=== PATIENT | male | born 1960 | race Caucasian/White ===

== ENCOUNTER 2023-09-22 08:44 | Outpatient (REF) | payer OTHER, SELFPAY ==
--- NOTE | ~2023-09-22 | CT_ITS ---
CT HEAD WITHOUT IV CONTRAST INDICATION: Memory Loss. COMPARISON: None available. TECHNIQUE: Multidetector CT acquisitions of the head was obtained without IV contrast. This CT examination was performed using dose optimization techniques as appropriate, variously including the following: *Automated exposure control *Adjustment of mA and/or kV according to patient size (this includes techniques or standardized protocols for targeted exams where dose is matched to indication/reason for exam; i.e. extremities or head) *Use of iterative reconstruction technique FINDINGS: There is no intracranial hemorrhage, hydrocephalus, extra-axial surface collection, midline shift, or other herniation pattern. Maciel to white matter differentiation is diffusely maintained without evidence of an evolved acute territorial infarct. The basilar cisterns are preserved. No significant soft tissue abnormality. No acute osseous abnormality. A few posterior left ethmoid air cells are opacified and the left sphenoid sinus has a moderate fluid level. Small fluid level right maxillary sinus CT/CT head/brain wo IV con IMPRESSION: - No acute intracranial abnormality. - A few posterior left ethmoid air cells are opacified and the left sphenoid sinus has a moderate fluid level. Small fluid level right maxillary sinus
== END 2023-09-22 08:45 | disposition home or self-care (01) ==
LOC: HO.CT 08:44
PROVIDERS: PCP Internal Medicine; Visit Provider Psychiatry & Neurology Neurology
DX: R41.3 Other amnesia (principal)
CPT/HCPCS: 70450

== ENCOUNTER 2023-09-22 09:56 | Emergency (ER) | payer OTHER, SELFPAY ==
--- NOTE | 2023-09-22 10:00 | ECG_ITS ---
Test Reason : palpitations Blood Pressure : / mmHG Vent. Rate : 083 BPM Atrial Rate : 083 BPM P-R Int : 166 ms QRS Dur : 100 ms QT Int : 348 ms P-R-T Axes : 020 -08 039 degrees QTc Int : 408 ms Sinus rhythm with occasional Premature ventricular complexes Incomplete right bundle branch block Borderline ECG No previous ECGs available Referred By: Generic ED Physician Electronically Signed By:Adair Castillo
[2023-09-22 10:07] VITALS: BP 143/90; PULSE 90; RESP 20; TEMP 36.2; O2SAT 96; BMI 40.6
[2023-09-22 10:34] LABS: Glucose, Whole Blood 206 mg/dL (60-115)
[2023-09-22 10:38] LABS: MANUAL DIFF FLAG NO
[2023-09-22 10:40] LABS: Basophils Absolute Auto 0.1 X10*3/uL (0.0-0.2); Basophils Percent Auto 0.9 % (0-2); Eosinophils Absolute Auto 0.3 X10*3/uL (0.0-0.4); Eosinophils Percent Auto 3.6 % (0-4); Hematocrit 42.6 % (42.0-52.0); Hemoglobin 15.3 g/dl (14.0-18.0); Imm Gran Abs Auto 0.02 X10*3/uL (0.00-0.03); Imm Gran Pct Auto 0.2 % (0.0-0.4); Lymphocytes Absolute Auto 2.5 X10*3/uL (1.2-4.9); Lymphocytes Percent Auto 30.5 % (20-40); Mean Corpuscular HGB Conc 35.9 g/dl (31.0-36.0); Mean Corpuscular Hemoglobin 31.6 pg (27.0-33.0); Mean Platelet Volume 10.2 fL (9.4-12.4); Monocytes Absolute Auto 0.6 X10*3/uL (0.1-1.2); Monocytes Percent Auto 7.2 % (2-11); Neutrophils Absolute Auto 4.6 x10*3/uL (2.0-8.3); Neutrophils Percent Auto 57.6 % (45-73); Platelet Count 306 X10*3/uL (160-400); Red Blood Count 4.84 X10*6/uL (4.60-5.80); Red Cell Distribution Width 11.7 % (11.0-16.0)
[2023-09-22 10:54] LABS: Alanine Aminotransferase 25 U/L (0-40); Albumin Level 4.3 g/dL (3.5-5.0); Alkaline Phosphatase 114 U/L (39-117); Anion Gap 14 (12-20); Aspartate Amino Transferase 21 U/L (5-37); Bilirubin Direct 0.2 mg/dL (0.0-0.5); Bilirubin Total 0.4 mg/dL (0.0-1.0); Blood Urea Nitrogen 12 mg/dL (9-16); Calcium 9.4 mg/dL (8.4-10.2); Carbon Dioxide 27 mmol/L (22-29); Chloride 102 mmol/L (96-108); Creatinine Clr Calc Pharmacy 65.6; Estimated Glomerular Filt Rate 56; Glucose Random 194 mg/dL (60-115); Lipase 26 U/L (8-78); Potassium 4.7 mmol/L (3.3-5.1); Sodium 138 mmol/L (135-145); Total Protein 7.1 g/dL (6.5-8.0)
--- NOTE | 2023-09-22 17:16 | ED_ITS ---
HPI - General Adult General Chief complaint: General Medical Stated complaint: Vertigo/Palpitations? Time Seen by Provider: 09/22/23 16:57 Source: patient Mode of arrival: ambulatory Limitations: no limitations History of Present Illness HPI narrative: 62-year-old male who presents emergency department for evaluation of head pressure, dizziness and palpitations. Patient states that approximately 2 weeks ago he had a head cold and since that time he has not feeling well. He also states he has been under stress secondary to his 's illness. The patient did see his neurologist and had a CT scan of the brain today, after getting the scan he went to see the neurologist and told that the CT scan was normal. Patient told me that he complained of a fluttering sensation in his chest and he is referred to the emergency department for evaluation. The patient states that he does have a history of atrial fibrillation in the past but had a cardiac workup several years ago which was unremarkable. He states that he has intermittent fluttering sensations in his chest and he describes the sensation as a heart pounding sensation. He does not perceive any skipped beats. He states that when he gets the sensation he does feel dizzy. He denied any chest pressure heaviness or any chest pain associated with exertion. He states that he has been under stress and did have several panic attacks last week. Related Data Previous Rx's Medication Instructions Recorded propranolol 20 mg tablet 20 mg PO DAILY #30 tabs 09/22/23 Allergies Allergy/AdvReac Type Severity Reaction Status Date / Time celecoxib [From Celebrex] Allergy Unknown Verified 09/22/23 10:13 hydromorphone [From Dilaudid] Allergy Dizziness Verified 09/22/23 10:13 Review of Systems 2 Review of Systems: Yes all other systems are reviewed and are negative [facility] Past Medical History [facility] Narrative: Past medical history: Diabetes mellitus, hypertension, hyperlipidemia, atrial fibrillation, diabetic neuropathy, anxiety, depression. Social history: He is . He denies tobacco, alcohol and drug use Physical Exam ED Vital Signs: Vital Signs - 24 hr 09/22/23 10:07 Temperature 97.2 F Pulse Rate 90 Respiratory Rate 20 Blood Pressure 143/90 H Pulse Oximetry 96 Oxygen Delivery Method Room Air BMI result Body Mass Index 40.6 Vital signs revealed an elevated blood pressure of 143/90 otherwise unremarkable Exam General: Awake, alert in no distress Head: Normocephalic, atraumatic EENT: PERRL, Lids normal, sclera normal, conjunctiva normal, nose normal , ears normal, throat without erythema or exudates Neck: Supple, no adenopathy Lung: breath sounds symmetric, no wheezing, rales or rhonchi Chest: symmetric movement, nontender Heart: regular rate and rhythm, normal S1, S2 no murmurs or rubs Abdomen: soft, non-tender, nondistended, normal bowel sounds Back: no vertebral tenderness, no CVAT Extremities: no deformities, moves all extremities symmetrically Skin: no rashes, no lesion, normal color and warmth Neuro: Awake, alert, oriented, normal speech, cranial nerves intact, moves all extremities symmetrically Psych: Pleasant, cooperative Medical Decision Making Medical Decision Making MDM Narrative: 62-year-old male who presents emergency department for evaluation of head pressure, dizziness and palpitations. Patient has not been feeling well for 2 weeks and is under increased stress secondary to his 's illness. Patient did see his neurologist and had a negative CT scan today (as interpreted by his neurologist). Patient's physical examination was unremarkable. Differential diagnosis: Includes was not limited to myocardial infarction, myocardial ischemia, palpitations, atrial fibrillation, arrhythmia, anxiety, panic attack Following evaluation was ordered: CBC, BMP, liver panel, lipase, EKG 17:59 My independent interpretation patient's laboratory evaluation as follows: CBC was normal. CMP was normal. Lipase was not elevated. Patient's 12 EKG was unremarkable except for incomplete right bundle-branch block and occasional PVC. On the cardiac rehabilitation program director, while was in the patient's room, he did have frequent PVCs but did not proceed these PVCs as skipped beat/palpitations At this time, I believe the patient needs to be worked up again for possible paroxysmal atrial fibrillation. Patient was advised to follow-up with his space physicist Patient has also been under increased stress and has had panic attacks, therefore the patient will be started on propanolol 20 mg once a day to see if this helps with the symptoms. He was given printed and verbal instructions and discharged home. Admission/Observation Consideration of admission/observation: Escalation of care including admission/observation considered Lab Data 09/22/23 10:28 09/22/23 10:28 Labs: Lab Results 09/22/23 09/22/23 Range/Units 10:28 10:30 WBC 8.0 (4.8-10.8) X10*3/uL RBC 4.84 (4.60-5.80) X10*6/uL Hgb 15.3 (14.0-18.0) g/dl Hct 42.6 (42.0-52.0) % MCV 88.0 (80.0-98.0) fL MCH 31.6 (27.0-33.0) pg MCHC 35.9 (31.0-36.0) g/dl RDW 11.7 (11.0-16.0) % Plt Count 306 (160-400) X10*3/uL MPV 10.2 (9.4-12.4) fL Immature Gran % (Auto) 0.2 (0.0-0.4) % Neut % (Auto) 57.6 (45-73) % Lymph % (Auto) 30.5 (20-40) % [place] % (Auto) 7.2 (2-11) % Eos % (Auto) 3.6 (0-4) % Baso % (Auto) 0.9 (0-2) % Lymph # (Auto) 2.5 (1.2-4.9) X10*3/uL [place] # (Auto) 0.6 (0.1-1.2) X10*3/uL Eos # (Auto) 0.3 (0.0-0.4) X10*3/uL Baso # (Auto) 0.1 (0.0-0.2) X10*3/uL Abs Immat Gran (auto) 0.02 (0.00-0.03) X10*3/uL Absolute Neuts (auto) 4.6 (2.0-8.3) x10*3/uL Absolute Nucleated RBC 0.000 (0.0-0.012) X10*3/uL Nucleated RBC % (auto) 0.0 (0.0-0.2) /100WBC Sodium 138 (135-145) mmol/L Potassium 4.7 (3.3-5.1) mmol/L Chloride 102 (96-108) mmol/L Carbon Dioxide 27 (22-29) mmol/L Anion Gap 14 (12-20) BUN 12 (9-16) mg/dL Creatinine 1.31 (0.5-1.4) mg/dL Estim Creat Clear Calc 65.6 Estimated GFR 56 POC Glucose 206 H (60-115) mg/dL Random Glucose 194 H (60-115) mg/dL Calcium 9.4 (8.4-10.2) mg/dL Total Bilirubin 0.4 (0.0-1.0) mg/dL Direct Bilirubin 0.2 (0.0-0.5) mg/dL AST 21 (5-37) U/L ALT 25 (0-40) U/L Alkaline Phosphatase 114 (39-117) U/L Total Protein 7.1 (6.5-8.0) g/dL Albumin 4.3 (3.5-5.0) g/dL Lipase 26 (8-78) U/L Independent Interpretation I performed an independent interpretation of an: EKG Interpretation: My interpretation patient's 12 EKG done at 10:04 hours is as follows: Normal sinus rhythm rate of 83, occasional PVC, normal NC, interval, prolonged QRS duration of 100 milliseconds and QTC intervals, no significant T-wave abnormalities, occasional PVC, no ST segment elevation, no ST segment depression, incomplete right bundle-branch block. Discharge Plan Discharge Clinical Impression: Palpitation, Anxiety, Headache Patient Disposition: Home, Self-Care Instructions: Heart Palpitations (ED) Additional Instructions: Your CBC and comprehensive metabolic panel were normal. Your EKG did reveal frequent premature ventricular contractions (PVCs). While you were on the cardiac rehabilitation program director, you did not feel these PVCs. Usual people feel a skipped beat sensation when they can feel a PVC. You will need to see your space physicist to get worked up for palpitations to make sure that you do not have intermittent atrial fibrillation as the cause of your palpitations or other concerning arrhythmias. Your space physicist may consider diagnostic tests such as Holter monitor, event monitor and echocardiogram (ultrasound) of your heart. Since you have been under increased stress, having palpitations and panic attack, I think you would benefit from being started on propanolol 20 mg once a day. This medication helps with palpitations but also disrupts symptoms that can be caused by anxiety. Continue your other medications as prescribed by your doctor. Follow-up with your doctor in 2 days. Please return to the emergency department if your symptoms get worse or if you develop any symptoms that are concerning to you. Prescriptions: New propranolol 20 mg tablet 20 mg PO DAILY Qty: 30 0RF
[2023-09-22 17:26] VITALS: BP 148/82; PULSE 86; RESP 17; O2SAT 100
== END 2023-09-22 18:19 | disposition home or self-care (01) ==
PROVIDERS: Emergency Provider Emergency Medicine Emergency Medical Services; PCP Internal Medicine
DX: R00.2 Palpitations (principal); F41.1 Generalized anxiety disorder; F43.0 Acute stress reaction; R51.9 Headache, unspecified; Z79.899 Other long term (current) drug therapy
CPT/HCPCS: 36415; 80048; 80076; 82947; 83690; 85025; 93005; 99283; 99284

== ENCOUNTER → 2023-09-22 10:00 | Outpatient (BNV) | payer OTHER, SELFPAY | PROVIDERS: Emergency Provider Emergency Medicine Emergency Medical Services; PCP Internal Medicine; Visit Provider Internal Medicine Cardiovascular Disease | DX: I49.3 Ventricular premature depolarization (principal) | CPT/HCPCS: 93010 ==

== ENCOUNTER 2025-06-20 09:00 | Outpatient (AMB) | payer OTHER, SELFPAY ==
--- NOTE | 2025-06-20 09:11 | MHC.OFFVIS ---
Intake Visit Reasons: LDD Allergies celecoxib (From Celebrex) Allergy (Verified 06/20/25 09:12) Unknown hydromorphone (From Dilaudid) Allergy (Verified 06/20/25 09:12) Dizziness Medication List - Last Reconciled 06/20/25 by Eunice Lamar CNP acetaminophen (Tylenol Extra Strength) 1,000 mg PO TID PRN amlodipine 2.5 mg PO DAILY atorvastatin 10 mg PO DAILY bupropion HCl XL 150 mg PO DAILY cyclobenzaprine 10 mg PO BEDTIME PRN fenofibrate nanocrystallized 48 mg PO DAILY gabapentin 600 mg (2 x 300 mg) PO TID 90 days losartan 100 mg PO DAILY meclizine 25 mg PO TID metformin 1,000 mg PO BID perphenazine 6 mg PO propranolol 20 mg PO DAILY semaglutide (Ozempic) 1 mg subcut QWEEK sildenafil 100 mg PO HPI Comments Details: He was doing okay. 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 Walking about 30 minutes every 2 hours during his shift. Balance may be off at times, but no recent falls. Has lost some weight with Ozempic and blood sugar has been better controlled. Neuropathy symptoms may be bit better and more tolerable. Gabapentin helps with pain in feet. Symptoms of pain, numbness, pins and needles increase if he misses dose. Arthritis pain in neck is stable, uses cervical pillow and cyclobenzaprine as needed helps. No significant headaches. Dizziness is okay with meclizine. Sleep was up and down. Memory stable. Went to urgent care earlier this month for R shoulder pain, had report of XR done that showed arthritis and was recommended to use diclofenac gel which he has not tried yet. Saw cardiology for palpitations and cold sweats. Had some on and off pressure in head and eyes, persistent vertigo or pre-vertigo feeling, and butterflies in stomach. Occasional headaches. Had sharp pains in head. Some pins and needles in feet. Upper back pain. Was depressed and crying a lot, overwhelmed. His got him a puppy. Had multiple complaints including pains in feet from neuropathy. Has pains in multiple joints from arthritis. Had R TKR. Pain in lower back, mid back, upper back, and neck radiating into right shoulder and arm. Had dizziness since 02/2021, which is sense of pressure to head and feels tired. Few bouts of vertigo, takes meclizine. Feels weakness in arms. Wanted to be out on disability because of his multiple medical problems and psychiatric issues. Works as security sales consultant at nursing facility and had problems with superiors. Said he cannot walk around for so long and had constant pain. Also had lot of stress related to family issues with siblings. [facility] Medical History (Updated 06/20/25 @ 09:27 by Eunice Lamar CNP) Bipolar disorder Depression Arthritis Hypertension Diabetes Schizoaffective disorder Review of Systems Const Denies chills, Denies daytime sleepiness, Reports difficulty sleeping, Reports fatigue, Denies fever(s), Denies frequent falls, Reports headache(s), Denies increased appetite, Denies poor appetite, Reports snoring, Denies weakness, Denies weight gain and Denies weight loss Eyes Denies loss of vision ENT Denies vertigo, Reports dizziness, Reports headache(s) and Reports neck pain Card Denies chest pain at rest, Denies chest pain with activity, Denies syncope, Denies leg edema, Denies palpitations, Reports dyspnea and Denies dyspnea on exertion Resp Denies cough, Reports dyspnea, Denies dyspnea on exertion and Reports snoring GI Denies abdominal pain, Denies constipation, Denies heartburn, Denies diarrhea and Denies nausea Denies urinary frequency, Denies urinary incontinence and Denies urinary urgency Musc Reports abnormal gait (balance difficulty), Reports back pain, Reports myalgias, Denies arthralgias, Reports neck pain, Reports numbness and Reports tingling Neuro Reports abnormal gait (balance difficulty), Denies vertigo, Reports dizziness, Denies syncope, Denies frequent falls, Reports headache(s), Denies lack of coordination, Denies loss of vision, Reports memory loss, Reports numbness, Denies Other visual disturbances, Denies restless legs, Denies seizure-like activity, Reports tingling, Denies paresthesias, Denies tremor(s) and Denies weakness Psych Reports anxiety, Reports depression, Denies auditory hallucinations, Reports memory loss and Denies visual hallucinations Endo Reports fatigue and Denies palpitations Physical Exam Const Other: General Appearance:? normal, in no acute distress. Heart:? S1, S2 normal, no murmurs. Lungs:? clear anteriorly and posteriorly. Musculoskeletal:? normal. Extremities:? no edema. Psych:? alert, oriented, cognitive function intact, cooperative with exam. Neuro Other: Abnormal Neurological Findings:?Distal blunting of pin prick in feet and impaired vibration in toes. Decreased R ankle jerk, Mental Status: alert and oriented X 3. Normal attention, orientation, memory, and affect. Cranial Nerves: Pupils are equal, round, and reactive to light. External ocular muscles are intact. Visual mckeon are full, no ptosis. Face is symmetrical, no facial weakness or droop. Facial sensations are normal. Tongue protrudes in midline. Palate elevates symmetrically. Shoulder shrugging is normal Motor Examination: As above. Sensory Exam: As above. Coordination: No ataxia. No titubation. Gait Exam: Within normal limits. Cerebellar Signs: [id number] is okay. Extrapyramidal System: No tremor, rigidity with normal facial expressions. No bradykinesia. No bradyphrenia. Normal arm swing and posture. No propulsion or retropulsion. Speech: Normal. Results Reviewed Results Reviewed: 04/02/21 NCV/EMG ALL Normal motor and sensory nerve conduction velocities in the upper extremities. Mild axonal peripheral neuropathy in the lower extremities. Normal EMG of the left C5-T1 and left L4-S1 innervated muscles. 09/22/23 Ct reviewed. No acute findings or mass. A few posterior left ethmoid air cells are opacified and the left sphenoid sinus has a moderate fluid level. Small fluid level right maxillary sinus 06/17/25 R shoulder XR: Acromioclavicular joint is degenerative. Assessment & Plan Assessment & Plan (1) Lumbar disc disease: Code(s): M51.9 - Unspecified thoracic, thoracolumbar and lumbosacral intervertebral disc disorder Category: Medical Plan: Continue gabapentin 300mg 2 capsules three times a day. (2) Cervical spondylosis: Code(s): M47.812 - Spondylosis without myelopathy or radiculopathy, cervical region Category: Medical Plan: Continue cyclobenzaprine 10mg 1 tablet at bedtime as needed for muscle spasm/pain. (3) Dizziness: Code(s): R42 - Dizziness and giddiness Category: Medical Plan: Continue meclizine. (4) Peripheral neuropathy: Code(s): G62.9 - Polyneuropathy, unspecified Category: Medical Qualifiers: Peripheral neuropathy type: polyneuropathy, unspecified Qualified Code(s): G62.9 - Polyneuropathy, unspecified (5) Memory loss: Code(s): R41.3 - Other amnesia Category: Medical Plan . Medications: New cyclobenzaprine 10 mg PO BEDTIME PRN 90 tabs 1RF muscle spasm, pain 90 days Coding Level of Care Code Est Pt Level 4 (38257) Diagnoses Lumbar disc disease M51.9 Cervical spondylosis M47.812 Dizziness R42 Peripheral polyneuropathy G62.9 Peripheral neuropathy type: polyneuropathy, unspecified Memory loss R41.3
--- OUTSIDE RECORDS SUMMARY | 2025-06-20 09:35 | XMS_ITS | Patient Health Record ---
Author Organization [facility] Address [address] [place] [address] Care Team Providers Care Treating Inspector Name Role Phone Kai Ramirez Primary Care Provider Unavailab [place] Unavailable Unavailable Allergies Allergen (clinical drug ingredient) Drug/Non Drug Allergy documented on EMR Reaction Allergy Type Onset Date Status celecoxib Celebrex Unknown Drug Allergy Active hydromorphone Dilaudid Unknown Drug Allergy Act yg Reason For Referral No Information Medications Medication SIG (Take, Route, Frequency, Duration) Notes Start Date End Date Status Losartan Potassium 100 MG 1 tablet Orally Once a day Active Fluticasone Propionate 50 MCG/ACT 2 sprays in each nostril Nasally Once a day Active Sildenafil Citrate 100 MG 1 tablet as needed Orally Once a day Active Ascorbic Acid 1000 MG 1 tablet Orally On ce a day Active Meclizine HCl 25 MG 1 tablet Orally three times a day as needed Active Fexofenadine HCl 180 MG 1 tablet Orally Once a day Active Trulicity 0.75 MG/0.5ML as directed Subcutaneous Active buPROPion HCl ER (XL) 150 MG 1 tablet in the morning Orally Once a day Active Gabapentin 300 MG 1 capsule before bed Once a day; Duration: 90 day(s) Active Perphenazine 4 MG 1 tablet Orally Twice a day Active B Complex - as directed Orally Active [place] 3 1000 MG 1 capsule Orally Once a day Active Clotrimazole cream apply bid as needed Active Albuterol Sulfate 108 (90 Base) MCG/ACT 1 puff as needed Inhalation every 4 hrs Active [place] Adults - as directed Orally Active metFORMIN HCl 1000 MG 1 tablet with a me al Orally Once a day Active Cholecalciferol 25 MCG (1000 UT) 1 capsule Orally Once a day Active Aspirin 81 MG 1 tablet Orally Once a day Active Problems Problem Type SNOMED Code ICD Code Onset Dates Problem Status W/U Status Risk Notes Problem Acquired hallux rigidus (7584408) Hallux rigidus, right foot (M20.21) Active confirmed Problem Acquired hallux rigidus (9316792) Hallux rigidus, left foot (M20.22) Active confirmed Problem Polyneuropathy due to type 2 diabetes mellitus (965874270) Type 2 diabetes mellitus with diabetic polyneuropathy, without long-term current use of insulin (E11.42) Active confirmed Problem Neuropathic pain (finding) (006544169) Neuropathic pain of both feet (G57.93) Active confirmed Plan Of Treatment Pending Test Test Name Order Date X ray : Foot, left 3v 09/13/2020 X ray : Foot, right 3v 09/13/2020 Insurance Providers Payer Name Payer Address Payer Phone Subscriber Number Group Number Insured Name Patient Relationship to Insured Coverage Start Date Coverage End Date [facility] [address] [facility] [place] [phone] [id number] Jl Carlson Self - patient is the insured Medical (General) History Medical History History ICD Code severe obesity (BMI 35.0-39.9) with david rbidity microalbuminuria DM (diabetes mellitus) type 2 controlled with renal manifestation Type 2 diabetes mellitus with peripheral vascular disease S/P TKR ( total knee replacement) Arthritis of knee Plantar fasciitis Asthma ED (erectile dysfunction) Essential hypertension, benign Mixed hyperlipdemia Bipolar 1 disorder/schizoaffective disor frankie Surgical History Surgery Date(Month/Year) Historical Colonoscopy Historical tonsillectomy Cyst removal from back Reconstruction of Nose/Septum Total knee replacement 2017 Vasectomy
--- OUTSIDE RECORDS SUMMARY | 2025-06-20 09:35 | XMS_ITS | Patient Health Record ---
Author Organization [facility] Address [address] [place] [place] [address] Care Team Providers Care Munitions Worker Name Role Phone [address] Akhil BELTRE, Fabienne Primary Care Provider Unavailable [place] Unavailable [phone] Reason For Referral No Information Medications Medication SIG (Take, Route, Frequency, Duration) Notes Start Date End Date Status Diovan Active [place] Carbonate Ac tive buPROPion HCl Active Perphenazine Active Fluticasone Propionate Active Viagra Active Albuterol Sulfate Ac tive Aspirin EC Active Betamethasone Dipropionate Active metFORMIN HCl Active Problems Problem Type SNOMED Code ICD Code Onset Dates Problem Status W/U Status Risk Notes Problem Type II diabetes mellitus without complication (853403861) Diabetic - NIDDM (250.00) Active confirmed Plan Of Treatment No Information Insurance Providers Payer Name Payer Address Payer Phone Subscriber Number Group Number Insured Name Patient Relationship to Insured Coverage Start Date Coverage End Date [facility] [address] [place] [address] [id number] Jl Carlson Sr Self - patient is the insured Medical (General) History Medical History History ICD Code Anxiety disorder asthma broken bones dementia depression diabetic hypertension kidney disease psychiatric disorder sinus conditions warts chicken pox
== END 2025-06-20 09:32 | disposition home or self-care (01) ==
LOC: HO.HSM 09:00
PROVIDERS: PCP Internal Medicine; Referring Provider Internal Medicine; Visit Provider Registered Nurse
DX: M51.9 Unspecified thoracic, thoracolumbar and lumbosacral intervertebral disc disorder (principal); M47.812 Spondylosis without myelopathy or radiculopathy, cervical region; R42 Dizziness and giddiness; G62.9 Polyneuropathy, unspecified; R41.3 Other amnesia
CPT/HCPCS: 99214